=== PATIENT | female | born 1950 | race Caucasian/White ===

== ENCOUNTER → 2017-06-01 14:34 | Outpatient (CLI) | payer MEDICARE, OTHER | END | disposition home or self-care (01) | LOC: D.RAD 10:30 | DX: M25.561 Pain in right knee (principal) ==

== ENCOUNTER 2019-02-03 15:47 | Observation (INO) | payer MEDICARE, OTHER ==
[~2019-02-03] VITALS: Ht 162.6 cm; Wt 94.1 kg
--- NOTE | ~2019-02-03 | HP ---
PATIENT: WERNER DHALIWAL [place] MEDICAL RECORD: [id number] ACCOUNT: [id number] LOCATION:D. D.2126 : 46 ADMISSION DATE: 02/03/19 PCP: JULIANO HERNANDEZ MD HISTORY AND PHYSICAL EXAMINATION ADMITTING DIAGNOSES: 1. Chest pain compatible with angina. 2. Hyperlipidemia. 3. Hypertension. 4. Family history of coronary artery disease. HISTORY OF PRESENT ILLNESS: Ms. Dhaliwal presents with chest discomfort. She had multiple episodes of chest discomfort today. Three discrete episodes. Finally, she presented to the Emergency Room. It was relieved with sublingual nitro. She has not had any recurrence of the pain. She has no acute ST-T abnormalities on her EKG. PHYSICAL EXAMINATION: GENERAL APPEARANCE: Well nourished, well developed, appears stated age. Level of distress, comfortable. PSYCHIATRIC: Mental status, alert, normal affect. Orientation, oriented to time, place and person. EYES: Lids and conjunctiva, noninjected. No discharge, no pallor. ENT: Lips, teeth, gums, normal dentition. Oropharynx, no cyanosis, no pallor. NECK: Carotid arteries, bilateral normal upstroke, no bruits, no thrills. JUGULAR VEINS: No jugular venous pressure or distention. CERVICAL LYMPH NODES: Nontender, nonenlarged. THYROID: Not enlarged. Nontender. No nodules. LUNGS: Respiratory effort, unlabored. CHEST: Normal curvature. No thoracic deformity. No chest wall tenderness. Percussion, resonant. Auscultation, clear. No wheezes, no rales, no rhonchi. CARDIOVASCULAR: Precordial exam, nondisplaced. No heaves or pericardial thrills. Rate and rhythm, regular. Heart sounds, normal S1, normal S2. No S3, no gallop, no rub. Systolic murmur, not heard. Diastolic murmur, not heard. EXTREMITIES: No cyanosis, no edema. Peripheral pulses, full and equal in all extremities, except as noted. No bruits appreciated. ABDOMEN: Soft, nondistended. Normal aorta. No bruit. Nontender. No masses. Liver, nontender, no hepatomegaly. Spleen, nontender, no splenomegaly. MUSCULOSKELETAL: No joint tenderness. No joint swelling. No erythema. NEUROLOGICAL: Normal gait, normal strength, normal tone. SKIN: Warm and dry. OVERALL IMPRESSION: Chest pain, recurrent today, multiple times in an unstable fashion. We will proceed with coronary angiography in the a.m. Further care depends upon findings of the angiography. TRANSINT:[id number] Voice Confirmation ID: [id number] DOCUMENT ID: [id number] HISTORY AND PHYSICAL [id number] WERNER DHALIWAL JEFFREY MD CC: [id number] DICTATION DATE: 02/03/191925 LOCOMOTIVE DRIVER: 02/03/19 [facility]3 ADM IN [id number] [place] [address]
--- NOTE | ~2019-02-03 | DS ---
PATIENT:WERNER DHALIWAL :46 MEDICAL RECORD: [id number] DISCHARGE SUMMARY ADMISSION DATE: 02/03/19 DISCHARGE DATE: 02/04/19 DIAGNOSES: 1. Chest pain. 2. Hypertension. 3. Hyperlipidemia. Mrs. Dhaliwal presents with chest pain compatible with angina; however, cardiac catheterization revealed no significant coronary artery disease, was discharged home. No change in her medications. No cardiac followup is necessary. TRANSINT:[id number] Voice Confirmation ID: [id number] DOCUMENT ID: [id number] ARMOND BRIDGES MD CC: [id number] DICTATION DATE: 02/04/19919 STEWARDING SUPERVISOR: 02/05/19 0144 DIS IN 02/04/19 [place] [id number] [place] [id number]
--- NOTE | ~2019-02-03 | OP ---
PATIENT NAME: WERNER HOOKER MEDICAL RECORD: [id number] :46 LOCATION:D.M2 D.2126 ADMISSION DATE:02/03/19 SURGEON: ARMOND BRIDGES MD DATE OF OPERATION: 02/04/2019 PROCEDURES: 1. Left heart catheterization. 2. Selective coronary angiography. 3. Left ventriculogram. INDICATION: Chest pain compatible with angina. PROCEDURE IN DETAIL: After informed consent was obtained and after a detailed description of the risks, benefits as well as alternative therapies, the patient elected to proceed with angiogram and heart catheterization. The right femoral area was prepped and draped in normal sterile fashion. Right femoral artery was cannulated via modified Seldinger technique with placement of 5-Luxembourgish sheath. All catheters exchanged through this sheath. FINDINGS: The left ventriculogram was performed in standard 30-degree WHEELER view, reveals good cardiac wall motion throughout all segments. Overall ejection fraction estimated at 55% to 60%. SELECTIVE CORONARY ANGIOGRAPHY: Left main, left anterior descending, left circumflex, right coronary artery are all smooth-walled vessels with no angiographic evidence of coronary artery disease. OVERALL IMPRESSION: 1. No angiographic evidence of coronary artery disease. 2. Normal left heart pressures. 3. Normal left ventricular systolic. IMPRESSION: Chest pain is noncardiac in etiology. No further cardiac workup needs to be ascertained. TRANSINT:[id number] Voice Confirmation ID: [id number] DOCUMENT ID: [id number] ARMODN BRIDGES MD CC: [id number] DICTATION DATE: 02/04/1921 PUBLIC RELATIONS PROFESSIONAL: 02/04/19 1102 ADM IN [place] [place] [address]
--- NOTE | ~2019-02-03 | HEMODYNAMI ---
PATIENT:WERNER HOOKER MEDICAL RECORD: [id number] : 46 LOCATION:[facility] D.2126 ADMISSION DATE: 02/03/19 Generatedon:02/04/20199:17 Patient name: WERNER HOOKER Patient #: [id number] SSN: : 1950 Date of study: 02/04/2019 Page: Of Hemodynamic Procedure Report Patient Data Patient Demographics Procedure consent was obtained First Name: WERNER Gender: Female Last Name: MORRO : 1950 [facility] Initial: LENI Age: 68 year(s) Patient #: [id number] Race: Unknown Additional ID: [id number] Contact details [address]: [address] [place] [address] State: [place] City: [place] Zip code: [address] Admission Admission Data Admission Date: 02/03/2019 Admission Time: 18:30 Room #: D.2126 Height (in.): 63.78 BSA: 1.96 (m2) Height (cm.): 162 BMI: 35.06 (kg/m2) Weight (lbs.): 202.83 Weight (kg.): 92 Procedure Procedure Types Cath Procedure Diagnostic Procedure C [facility] w/Coronaries Procedure Description Procedure Date Procedure Date: 02/04/2019 Procedure Start Time: 9:07 Procedure End Time: 9:15 Procedure Staff Name Function Roddy Joseph MD Performing Physician Tayler Hernandez RT Monitor Nayeli Morocho RT Scrub Deepika Del Angel RN Nurse Procedure Data Cath Procedure Fluoroscopy Diagnostic fluoroscopy Total fluoroscopy Time: 0.6 time: 0.6 min min Diagnostic fluoroscopy Total fluoroscopy dose: 214 dose: 214 mGy mGy Contrast Material Contrast Material Type Amount (ml) Isovue 300 41 Entry Location Entry Primary Successful Side Size Upsize Upsize Entry Closure Succes sful Closure Location (Fr) 1 (Fr) 2 (Fr) Remarks Device Remarks Femoral Right 5 Fr Exoseal artery Estimated blood loss: 10 ml Diagnostic catheters Device Type Used For End Catheter Placement MULTIPACK Pigtail 5 Fr Procedure catheter MULTIPACK JL 4.0 5Fr Procedure catheter MULTIPACK 3DRC 5Fr Procedure catheter Procedure Complications No complications Procedure Medications Medication Administration Route Dosage 0.9% NaCl I.V. 100 ml/hr Oxygen etCO2 Nasal cannula 2 l/min Lidocaine 2% added to field 20 Heparin Flush Bag added to field 2 bags (1000units/500ml NS) Versed I.V. 2 mg Fentanyl I.V. 50 mcg Versed I.V. 2 mg Fentanyl I.V. 50 mcg Hemodynamics Rest BSA: 1.96 (m2) O2 Consumption: Estimated: 190.29 (ml/min) O2 Consumption indexed : Estimated:97.09 (ml/min/m) Heart Rate: 83 (bpm) Snapshots Pre Cath Intra NCS Post Cath Vital Signs Time Heart Resp SPO2 etCO2 NIBP (mmHg) Rhythm Pain Sedation Rate (ipm) (%) (mmHg) Status Level (bpm) 9:01:04 79 14 99 32.7 181/85(135) NSR 0 (11) 10(A) , No pain 9:05:55 78 14 100 14.9 186/77(126) NSR 0 (11) 10(A) , No pain 9:10:35 72 13 99 10.4 153/78(110) NSR 0 (11) 10(A) , No pain 9:15:16 75 11 97 23 151/71(115) NSR 0 (11) 10(A) , No pain Medications Time Medication Route Dose Verified Delivered Reason Notes Effe ctiveness by by 9:04:31 0.9% NaCl I.V. 100 Roddy Deepika used for ml/hr Opal Del Angel financial services professional 9:04:39 Oxygen etCO2 2 Roddy Deepika used for Nasal l/min Opal Del Angel procedure cannula RN 9:04:50 Lidocaine 2% added 20ml Roddy Pereyra for local to vial Opal Joseph MD anesthetic field 9:04:54 Heparin Flush added 2 Roddy Roddy used for Bag to bags Opal Joseph MD procedure (1000units/500ml field NS) 9:06:42 Versed I.V. 2 mg Roddy Deepika for Opal Del Angel sedation RN 9:06:51 Fentanyl I.V. 50 Roddy Deepika for mcg Opal Del Angel sedation RN 9:11:03 Versed I.V. 2 mg Roddy Poe for Opal Del Angel sedation RN 9:11:07 Fentanyl I.V. 50 Roddy Poe for [facility] Opal Del Angle sedation environmental journalist Log Time Note 8:39:12 Informed consent obtained and on chart 8:39:35 Nayeli Morocho RT(R) sent for patient. Start room use. 8:39:36 Time tracking: Regular hours (M-F 7:00 - 5:00) 8:39:41 Plan of Care:Hemodynamics will remain stable., Cardiac rhythm will remain stable., Comfort level will be maintained., Respiratory function will remain adequate., Patient/ family verbilizes understanding of procedure., Procedure tolerated without complication., Recovers from procedure without complications.. 8:59:27 Vital chart was started 9:00:00 Patient received from Med II to CCL 1 Alert and oriented. Tansferred to table in Supine position. 9:00:01 Warm blankets applied, and mona hugger turned on for patient comfort. 9:00:02 Correct patient and procedure confirmed by team. 9:00:02 ECG and BP/O2 sat monitors applied to patient. 9:00:03 Baseline sample Acquired. 9:00:07 Rhythm: sinus rhythm 9:00:09 Full Disclosure recording started 9:00:13 H&P Date Dictated: 02/04/2019 New H&P dictated by physician.. 9:00:14 Pre-procedure instructions explained to patient. 9:00:15 Pre-op teaching completed and patient verbalized understanding. 9:00:16 Family in waiting room. 9:00:17 Patient NPO since Midnight. 9:00:19 Is the patient allergic to Iodine/contrast media? No. 9:00:20 Was the patient premedicated? No 9:04:31 0.9% NaCl 100 ml/hr I.V. was administered by Deepika Del Angel RN; used for procedure; 9:04:39 Oxygen 2 l/min etCO2 Nasal cannula was administered by Deepika Del Angel RN; used for procedure; 9:04:42 Is patient on blood thinner?Yes 9:04:46 Patient diabetic? No. 9:04:50 Lidocaine 2% 20ml vial added to field was administered by Roddy Joseph MD; for local anesthetic; 9:04:51 Snore? No 9:04:53 Sleep apnea? No 9:04:54 Heparin Flush Bag (1000units/500ml NS) 2 bags added to field was administered by Roddy Joseph MD; used for procedure; 9:05:07 Airway obstruction? Yes athma/ bronchitis 9:05:11 Dentures? No ? 9:05:22 IV patent on arrival in right forearm with 0.9% NaCl at O. 9:05:26 Lab results completed and on chart. 9:05:31 Right groin area was prepped with chlora-prep and draped in sterile fashion 9:05:32 Alarms reviewed by R. N. 9:05:33 Sharps counted by scrub and verified by R.N. 9:05:36 Physician paged 9:05:38 Physician arrived 9:05:39 --------ALL STOP TIME OUT------ 9:05:40 Final Timeout: patient, procedure, and site verified with staff and physician. All members of the team are in agreement. 9:06:06 Right groin site verified by team. 9:06:10 Maximum allowable Isovue 300 dose 300ml. Physician notified. (300ml for normal creatinines. For patients with creatinine of 1.7 or higher multiply weight(kg) x 5 divided by creatinine.) 9:06:18 Fire Safety Assessment: A--An alcohol-based skin anteseptic being used preoperatively., C--Open oxygen or nitrous oxide is being used., D--An ESU, laser, or fiber-optic light is being used. 9:06:24 Physical assessment completed. ASA score P 2 - A patient with mild systemic disease as per Roddy Joseph MD. 9:06:29 Sedation plan: IV Moderate Sedation Medication:Versed, Fentanyl 9:06:33 Use device set Femoral Dx 9:06:35 ACIST Syringe (35270) opened to sterile field. 9:06:35 Bag Decanter (2002) opened to sterile field. 9:06:35 Medline Cath Pack ([id number]) opened to sterile field. 9:06:36 DIAGNOSTIC WIRE .035 260cm J wire (848230) opened to sterile field. 9:06:37 ACIST Hand Control (74117) opened to sterile field. 9:06:37 ACIST Manifold (71328) opened to sterile field. 9:06:38 DIAGNOSTIC Multipack 5Fr catheter set (CT5869) opened to sterile field. 9:06:40 Tegaderm 4 x 4 (1626W) opened to sterile field. 9:06:42 Versed 2 mg I.V. was administered by Deepika Del Angel RN; for sedation; 9:06:43 SHEATH 5FR Lindrith (UAS059) opened to sterile field. 9:06:51 Fentanyl 50 mcg I.V. was administered by Deepika Del Angel RN; for sedation; 9:06:54 Procedure started. 9:07:58 Local anesthetic to right femoral artery with Lidocaine 2% by Roddy Joseph MD.INITIAL ACCESS ONLY 9:08:57 Patient Weight : 202.83 lbs 9::09 Patient Height : 63.78 inches 9:09:24 A 5 Fr sheath was inserted into the Right Femoral artery 9:09:35 A MULTIPACK Pigtail 5 Fr catheter was advanced over the wire and used for Procedure. 9:10:09 LV angiography performed. 9:10:44 EF : 50 % 9:10:46 Catheter removed. 9:10:54 A MULTIPACK JL 4.0 5Fr catheter was advanced over the wire and used for Procedure. 9:11:00 LCA angiography performed. 9:11:03 Versed 2 mg I.V. was administered by Deepika Del Angel RN; for sedation; 9:11:07 Fentanyl 50 mcg I.V. was administered by Deepika Del Angel RN; for sedation; 9:11:44 Catheter removed. 9:11:52 A MULTIPACK 3DRC 5Fr catheter was advanced over the wire and used for Procedure. 9:12:41 RCA angiography performed. 9:12:43 Catheter removed. 9:12:45 EXOSEAL 5Fr (EX500) opened to sterile field. 9:13:22 Sheath removed intact; hemostasis achieved with Exoseal to the Right Femoral artery. 9:14:10 Procedure ended.(Physican Out) 9:14:23 Fluoroscopy time 00.60 minutes. 9:14:29 Fluoroscopy dose: 214 mGy 9:14:29 Flurop Dose total: 214 9:14:34 Contrast amount:Isovue 300 41ml. 9:14:35 Sharps counted by scrub and verified by R.N. 9:14:37 Insertion/operative site no bleeding no hematoma. 9:14:43 Post right femoral artery:stable 9:14:54 Post-procedure physical assessment completed. ASA score P 2 - A patient with mild systemic disease as per Roddy Joseph MD. 9:14:57 Post procedure rhythm: sinus rhythm 9:15:00 Estimated blood loss: 10 ml 9:15:02 Post procedure instruction explained to patient.Patient verbalizes understanding. 9:15:14 Procedure and supply charges have been captured, reviewed, submitted and are correct. 9:15:34 Procedure Complication : No complications 9:15:38 Vital chart was stopped 9:15:40 See physician's report for complete and final results. 9:15:42 Report given to Pre/Post Procedure Room. 9:15:45 Patient transfered to Pre/Post Procedure Room with Stretcher. 9:15:47 Procedure ended. 9:15:47 Full Disclosure recording stopped 9:15:50 End room use (Document Last) Device Usage Item Name Manufacture Quantity Catalog Hospital Part Current Minimal L ot# / Number Charge Number Stock Stock Serial# Code ACIST Acist 1 26848 434362 902606 175456 20 Syringe Medical (97962) Systems Inc Bag Microtek 1 2001S 881171 42653 440421 5 Decanter Medical Inc. () Medline Medline 1 [id number] 044703 86315 274293 5 Cath Pack ([id number]) DIAGNOSTIC St [place] 1 523492 603221 651224 226425 30 WIRE .035 260cm J wire (193452) ACIST Hand Acist 1 92990 903786 825297 027289 5 Control Medical (14266) Systems Inc ACIST Acist 1 31851 376516 356310 985637 5 Manifold Medical (36947) Systems Inc DIAGNOSTIC Cardinal 1 IX6288 991624 89140 030958 30 Multipack Health 5Fr catheter set (CF5740) Tegaderm 4 3M 1 1626W 192723 178674 985145 5 x 4 (1626W) SHEATH 5FR Terumo 1 [id number] 345427 191032 038052 5 Lindrith (SER395) MULTIPACK Cardinal 1 412131 5 Pigtail 5 Health Fr catheter MULTIPACK Cardinal 1 259307 5 JL 4.0 5Fr Health catheter MULTIPACK Cardinal 1 066016 5 3DRC 5Fr Health catheter EXOSEAL 5Fr Cardinal 1 EX500 679420 295352 706695 10 (EX500) Health Signature Audit [place] Stage Time Signature Unsigned Intra-Procedure 02/04/2019 Tayler Hernandez 9:16:58 AM RT(R) Signatures Monitor : Tayler Hernandez Signature : RT Date : Time : [place] [id number] [place] [address]
[2019-02-03] MEDS ORDERED: TRAZODONE HCL150 MG PO (15:54)
[2019-02-03] MEDS ORDERED: HCTZ25 MG PO (15:54)
[2019-02-03] MEDS ORDERED: ZOCOR20 MG PO (15:54)
[2019-02-03] MEDS ORDERED: SINGULAIR10 MG PO (15:55)
[2019-02-03] MEDS ORDERED: CALCIUM 600 +1 EAC3 PO (15:55)
[2019-02-03] MEDS ORDERED: VIC-FORTE CAPSUL1 MG PO (15:55)
[2019-02-03] MEDS ORDERED: ASCORBIC ACID500 MG PO (15:55)
[2019-02-03] MEDS ORDERED: TUMERIC (15:56)
[2019-02-03 16:47] LABS: BASOPHILS 0.3 % (0-2); EOSINOPHILS 1.5 % (0-7); HEMOGLOBIN 13.4 g/dL (12-16); IMMATURE GRANULOCYTES 0.1 % (0-5); LYMPHOCYTES 34.1 % (15-50); MCHC 34.4 g/dL (31.0-37.0); MCV 90.3 fL (80.0-100.0); MEAN PLATELET VOLUME 9.6 fL (7.4-10.4); MONOCYTES 9.7 % (2-11); NEUTROPHILS 54.3 % (40-80); PLATELET COUNT 216 10x3/uL (130-400); RBC 4.32 10x6/uL (4.00-5.40); RDW 13.6 % (11.5-14.5); WBC 7.2 10x3/uL (4.8-10.8)
[2019-02-03 16:51] LABS: APTT 30.7 SECONDS (22.8-39.4); INR 1.02 (0.85-1.17); PROTIME 12.9 SECONDS (11.6-15.0)
[2019-02-03 16:52] LABS: ALBUMIN 4.1 g/dL (3.4-5.0); ALKALINE PHOSPHATASE 76 U/L (46-116); ALT (SGPT) 28 U/L (10-68); BILIRUBIN - TOTAL 0.29 mg/dL (0.2-1.3); CALC OSMOLALITY 280 mosm/kg (275-300); CALCIUM 9.1 mg/dL (8.5-10.1); CARBON DIOXIDE 30.1 mmol/L (21.0-32.0); CHLORIDE - SERUM 101 mmol/L (98-107); CREATININE - SERUM 0.9 mg/dL (0.6-1.3); GLUCOSE 98 mg/dL (74-106); POTASSIUM - SERUM 3.6 mmol/L (3.5-5.1); PROTEIN - SERUM 7.6 g/dL (6.4-8.2); SODIUM 139 mmol/L (136-145); UREA NITROGEN 22 mg/dL (7-18); eGFR NON AFRICAN AMERICAN 66 mL/min (90-120)
[2019-02-03 17:06] LABS: CKMB 0.5 U/L (0.0-3.6); CREATINE KINASE 80 UL (21-215)
[2019-02-03 17:14] LABS: TROPONIN-I < 0.017 ng/mL (0.000-0.060)
[2019-02-03 19:17] VITALS: BP 153/66
[2019-02-03 20:56] VITALS: BP 164/64
[2019-02-03 22:52] LABS: APPEARANCE CLEAR (CLEAR); BILIRUBIN NEGATIVE (NEGATIVE); COLOR YELLOW (YELLOW); GLUCOSE NEGATIVE (NEGATIVE); KETONE NEGATIVE (NEGATIVE); NITRITE NEGATIVE (NEGATIVE); PROTEIN NEGATIVE (NEGATIVE); UROBILINOGEN NORMAL (NORMAL)
[2019-02-04 00:09] VITALS: BP 164/64; Ht 162.6 cm; Wt 94.1 kg
[2019-02-04 00:35] VITALS: BP 160/68
--- NOTE | 2019-02-04 01:05 | NUR ---
RECIEVED REPORT FROM MELISSA IN ER.ARRIVED TO THE FLOOR AT 1999 IN W/C. ALERT AND ORIENTED X 4. UP AD ARON TO B/R. SPOUSE AT BEDSIDE. IV TO RIGHT AC SL. TELEMETRY IN PLACE. DENIES ANY PAIN OR NEEDS.
--- NOTE | 2019-02-04 02:28 | NUR ---
C/O CHEST PAIN STATES IT'S BURNING. MORPHINE GIVEN PER ORDERS AND STATED IT'S WORKING BEFORE LEAVING ROOM.
[2019-02-04 05:00] VITALS: BP 176/68
[2019-02-04 05:28] LABS: BASOPHILS 0.4 % (0-2); HEMATOCRIT 37.4 % (36.0-48.0); HEMOGLOBIN 12.6 g/dL (12-16); IMMATURE GRANULOCYTES 0.2 % (0-5); LYMPHOCYTES 42.5 % (15-50); MCH 30.4 pg (26.0-34.0); MCHC 33.7 g/dL (31.0-37.0); MCV 90.3 fL (80.0-100.0); MEAN PLATELET VOLUME 9.8 fL (7.4-10.4); MONOCYTES 10.6 % (2-11); NEUTROPHILS 43.3 % (40-80); PLATELET COUNT 221 10x3/uL (130-400); RBC 4.14 10x6/uL (4.00-5.40); RDW 13.5 % (11.5-14.5); WBC 5.6 10x3/uL (4.8-10.8)
[2019-02-04 05:39] LABS: CALC OSMOLALITY 286 mosm/kg (275-300); CALCIUM 8.7 mg/dL (8.5-10.1); CARBON DIOXIDE 28.6 mmol/L (21.0-32.0); CHLORIDE - SERUM 105 mmol/L (98-107); CREATININE - SERUM 0.8 mg/dL (0.6-1.3); GLUCOSE 90 mg/dL (74-106); POTASSIUM - SERUM 3.5 mmol/L (3.5-5.1); SODIUM 143 mmol/L (136-145); TROPONIN-I < 0.017 ng/mL (0.000-0.060); UREA NITROGEN 17 mg/dL (7-18); eGFR NON AFRICAN AMERICAN 75 mL/min (90-120)
--- NOTE | 2019-02-04 06:29 | NUR ---
IV STARTED TO LEFT HAND. 20 GA WITH ATTEMPTS X1 SL..
--- NOTE | 2019-02-04 06:30 | NUR ---
CONSENTS SIGNED FOR CATH THIS AM
--- NOTE | 2019-02-04 07:15 | NUR ---
REPORT RECIEVED AND MORNING ROUNDING COMPLETE, PT SISTTING UP IN BED, AND SISITER AT BEDSIDE. PT HAS A RIGHT AC RUNNING AT 75. PIV IN LEFT HAND PATENT. PT HAS NO NEEDS AT THIS TIME, JUST READY TO HAS HEART CATH PROCEEDURE FINISHED SO SHE CAN GO HOME. CALL LIGHT WITHIN REACH AND BED IN LOWEST POSITION.
[2019-02-04 07:40] VITALS: BP 155/77
--- NOTE | 2019-02-04 08:34 | NUR ---
OR CALLED FOR PT TO BE PREOED. PT IS PREOPED AND READY TO GO.
--- NOTE | 2019-02-04 09:34 | NUR ---
PT BACK FROM [facility] [employer]. CLEAN CATH. PT IS TO LAY FLAT FOR 2 HOURS. C/D/I RIGHT GROIN DRESSING. IF ALL GOES WELL DISCHARGE IN 2 HOURS.
--- NOTE | 2019-02-04 10:45 | NUR ---
I have reviewed this patient and I concur with the Shift Assessment completed by the Licensed Practical Nurse today this shift.
--- NOTE | 2019-02-04 11:30 | NUR ---
SAT PT'S BED UP TO 45%. PALPATED RIGHT GROIN, ALL IS SOFT. DRESSING C/D/I. ALL PALSES IN RIGHT LEG 2+. NO HAS NO NEEDS AT THIS TIME.
[2019-02-04 11:35] VITALS: BP 154/52
--- NOTE | 2019-02-04 13:12 | NUR ---
REMOVED PT'S PIV FROM RIGHT AC AND LEFT HAND, NO BLEEDING NOTED. REVIEWED DISCHARGE INSTRUCTIONS WITH PT, PT STATED THAT SHE UNDERSTOOD AND SIGNED DISCHARGE PAPERWORK. TOOK PT DOWN TO FRONT TO MEET HER . NO OTHER NEEDS AT THIS TIME.
--- NOTE | 2019-02-06 09:33 | MORECARE ---
CASE MANAGEMENT DISCHARGE SUMMARY PATIENT: WERNER HOOKER [place] UNIT: [id number] ADM DATE: 02/03/19 AGE: 68 : 48 SEX: F ROOM/BED: D.4336 AUTHOR: SHERRI NAIDU PHYSICIAN: REFERRING PHYSICIAN: ARMOND BRIDGES MD DATE OF SERVICE: 02/06/19 Discharge Plan Patient Name: WERNER HOOKER [facility] [facility] 1950 Planned Disposition: Home Anticipated Discharge Date: 02/04/19 Discharge Date: 02/04/2019 Expected LOS: 1 Initial Reviewer: [email or web address] Initial Review Date: 02/06/2019 Generated: 02/06/19 10:33 am Patient Name: WERNER HOOKER Page [id number] at 0933 All edits/amendments must be made on the electronic document DICTATION DATE: 02/06/19931 PREHEMMER: BRUNO 02/06/19931 RPT#: [id number] DC DATE:02/04/19 STATUS: DIS IN [facility] [address] [place] [address] END OF REPORT
== END 2019-02-04 13:15 | disposition home or self-care (01) ==
LOC: D.ER 15:47 → OBSVTIME 18:30 → D.M2 18:30
PROVIDERS: Family Medicine; ADMIT Internal Medicine Interventional Cardiology; ATTEND Internal Medicine Interventional Cardiology
DX: R07.89 Other chest pain (principal); I10 Essential (primary) hypertension; E78.5 Hyperlipidemia, unspecified